=== PATIENT | male | born 1995 | race Caucasian/White ===

== ENCOUNTER 2021-06-21 14:58 | Emergency (ER) | payer BC ==
[~2021-06-21] VITALS: Ht 162.6 cm; Wt 71.2 kg
--- NOTE | 2021-06-21 15:04 | NUR ---
Patient to ER bed 03 to gown for evaluation. Side rails up.
[2021-06-21 15:05] VITALS: BP_SYST 144
--- NOTE | 2021-06-21 15:05 | NUR ---
Pt came into ER with complaint of blood in his stool with abdominal pain 5/10 N/D X1day. Pt AAOX4 speaking full sentences no distress at this time. Pt resting in [facility].
--- NOTE | 2021-06-21 15:18 | NUR ---
Urine and stool specimen collected and sent to lab.
--- NOTE | 2021-06-21 16:02 | NUR ---
TITO Castro at bedside examining patient.
--- NOTE | 2021-06-21 16:07 | NUR ---
Note undone in [facility] - 06/21/21 at 1608 by YASMANIND Parish Castro at bedside examining patient. Addendum: 06/21/21 at 1607 by [email or web address] Amendment undone in [facility] - 06/21/21 at 1608 by SDEDND TITO Castro at bedside examining patient.
--- NOTE | 2021-06-21 16:22 | NUR ---
Pt. comforable at this time no pain
[2021-06-21] MEDS ORDERED: MAG HYDROX/AL HYDROX/SIMETH 30 ML, LIDOCAINE VISCOUS 2% 15ML (PO) 15 ML, DICYCLOMINE HC... PO ONE ×3 (16:30)
--- NOTE | 2021-06-21 16:51 | NUR ---
Pt. returned from radiology for abd. xrays
[2021-06-21 16:54] LABS: BILIRUBIN,URINE NEGATIVE (NEGATIVE); BLOOD, URINE NEGATIVE (NEGATIVE); CLARITY/URINE CLOUDY (CLEAR); COLOR,URINE YELLOW (YELLOW); GLUCOSE,URINE NEGATIVE (NEGATIVE); KETONES,URINE NEGATIVE (NEGATIVE); LEUKOCYTE ESTERASE ,URINE NEGATIVE (NEGATIVE); NITRITE, URINE NEGATIVE (NEGATIVE); PH,URINE 7.5 (5.0-8.0); PROTEIN URINE NEGATIVE (NEGATIVE); UROBILINOGEN,URINE 0.2 (0.2-1.0)
--- NOTE | 2021-06-21 16:55 | NUR ---
Ordered Food Tray from dietary, Regular Diet with a Diet Coke.
[2021-06-21 17:26] LABS: BASOPHILS # (AUTO) 0.1 K/uL (0.0-0.2); BASOPHILS % (AUTO) 0.9 % (0.0-2.0); EOSINOPHILS # (AUTO) 0.1 K/uL (0.0-0.4); EOSINOPHILS % (AUTO) 1.3 % (0.0-4.0); HEMATOCRIT 41.2 % (36-54); HEMOGLOBIN 14.1 g/dL (14.0-18.0); LYMPHOCYTES # (AUTO) 2.7 K/uL (1.0-5.5); LYMPHOCYTES % (AUTO) 39.7 % (20.5-51.5); MEAN CORPUSCULAR HEMOGLOBIN 31 pg (27-31); MEAN CORPUSCULAR HGB CONC 34 % (32-36); MEAN CORPUSCULAR VOLUME 89 fL (79.0-98.0); MONOCYTES # (AUTO) 0.4 K/uL (0.0-1.0); MONOCYTES % (AUTO) 6.4 % (1.7-9.3); NEUTROPHILS # (AUTO) 3.5 K/uL (1.8-7.7); NEUTROPHILS % (AUTO) 51.7 % (40.0-70.0); PLATELET COUNT (AUTO) 177 K/uL (130-430); RED BLOOD CELL COUNT(AUTO) 4.63 MIL/uL (4.2-6.2); RED CELL DISTRIBUTION WIDTH 13.5 % (9.0-15.0); WHITE BLOOD COUNT (AUTO) 6.8 K/uL (4.8-10.8)
[2021-06-21 17:42] LABS: CALCIUM 9.1 mg/dL (8.4-11.0); CREATININE 1.03 mg/dL (0.55-1.30); POTASSIUM 4.1 mmol/L (3.5-5.1)
[2021-06-21 17:48] LABS: TOTAL BILIRUBIN 0.2 mg/dL (0.0-1.0)
[2021-06-21] MEDS ORDERED: OMEP40CA20 PO (18:32)
[2021-06-21] MEDS ORDERED: DICY10CA13 PO (18:32)
[2021-06-21] MEDS ORDERED: ANT30 PO (18:32)
[2021-06-21 18:40] VITALS: BP_SYST 131
--- NOTE | 2021-06-21 18:40 | NUR ---
Patient given written and verbal discharge instructions and verbalizes understanding. ER Dr. Parson discussed with patient the results and treatment provided. Patient in stable condition. ID arm band removed. Rx of Mylanta, Omprazole, and Dicyclomine given. Patient educated on pain management and to follow up with PMD. Pain Scale 0. Opportunity for questions provided and answered. Medication side effect fact sheet provided.
== END 2021-06-21 18:40 | disposition home or self-care (01) ==
LOC: SED 14:58
DX: K92.1 Melena (principal); K21.9 Gastro-esophageal reflux disease without esophagitis
CPT/HCPCS: 36415; 74021; 80053; 81000; 81003; 83690; 85025; 99284; J2001